=== PATIENT | male | born 1965 | race Caucasian/White ===

== ENCOUNTER 2020-11-26 08:35 | Day surgery (SDC) | payer BC ==
[~2020-11-26] VITALS: Ht 185.4 cm; Wt 124.5 kg
[~2020-11-26 08:35] MED LIST: ATOR80 PO; BUPR150ER PO; FISH OIL 1,2001 EAC7; GLIP10 PO; LOSA50 PO; METF500C PO; PIOG30 PO; TRULICITY1.5 MG/0.1 SC
[2020-11-26] MEDS ORDERED: ZYRTEC10 M4 (09:19)
== END 2020-11-26 10:59 | disposition home or self-care (01) ==
LOC: ORSCSDS 08:35
PROVIDERS: Student in an Organized Health Care Education/Training Program
PROC: 0DBL8ZX Excision of Transverse Colon, Via Natural or Artificial Opening Endoscopic, Diagnostic (ICD-10-PCS; principal; 2020-11-26 10:00)
PROC: 0DB58ZX Excision of Esophagus, Via Natural or Artificial Opening Endoscopic, Diagnostic (ICD-10-PCS; principal; 2020-11-26 10:00)
DX: K21.9 Gastro-esophageal reflux disease without esophagitis (principal); K63.5 Polyp of colon; K57.30 Diverticulosis of large intestine without perforation or abscess without bleeding; Z12.11 Encounter for screening for malignant neoplasm of colon; E11.9 Type 2 diabetes mellitus without complications; I10 Essential (primary) hypertension; E78.5 Hyperlipidemia, unspecified; Z79.84 Long term (current) use of oral hypoglycemic drugs; Z79.899 Other long term (current) drug therapy
CPT/HCPCS: 82947; 88305; J0330; J0461; J2405; J2704; J7120